=== PATIENT | male | born 1995 | race Asian ===

== ENCOUNTER 2020-08-25 03:06 | Emergency (ER) | payer BC, SELFPAY ==
[~2020-08-25] VITALS: Ht 180.3 cm; Wt 91.6 kg
[2020-08-25 03:34] VITALS: BP_SYST 155
[2020-08-25 04:18] VITALS: BP_SYST 155
== END 2020-08-25 04:18 | disposition home or self-care (01) ==
LOC: SED 03:06
DX: U07.1 COVID-19 (principal); R06.02 Shortness of breath
CPT/HCPCS: 71045; 93005; 99283

== ENCOUNTER 2024-04-12 01:16 | Emergency (ER) | payer BC, OTHER ==
[~2024-04-12] VITALS: Ht 180.3 cm; Wt 93.0 kg
[2024-04-12 01:29] VITALS: BP_SYST 127; PULSE 88; RESP 20; TEMP 98; O2SAT 98
[2024-04-12] MEDS: KETOROLAC TROMETHAMINE 30 MG VIAL IVP ONE (02:18)
[2024-04-12] MEDS: NACL 0.9% 1,000 ML IV ONE (02:18)
[2024-04-12] MEDS: metroNIDAZOLE 500 mg/NS 100 ML IV ONE (02:18)
[2024-04-12 02:27] LABS: BILIRUBIN,URINE NEGATIVE (NEGATIVE); CLARITY/URINE CLEAR (CLEAR); COLOR,URINE YELLOW (YELLOW); GLUCOSE,URINE NEGATIVE (NEGATIVE); KETONES,URINE TRACE (NEGATIVE); LEUKOCYTE ESTERASE ,URINE NEGATIVE (NEGATIVE); NITRITE, URINE NEGATIVE (NEGATIVE); PH,URINE 6.5 (5.0-8.0); PROTEIN URINE NEGATIVE (NEGATIVE)
[2024-04-12 02:29] LABS: BASOPHILS % (AUTO) 0.3 % (0.0-2.0); EOSINOPHILS # (AUTO) 0.1 K/uL (0.0-0.4); EOSINOPHILS % (AUTO) 0.4 % (0.0-4.0); HEMATOCRIT 44.8 % (36-54); HEMOGLOBIN 15.3 g/dL (14.0-18.0); LYMPHOCYTES # (AUTO) 2.7 K/uL (1.0-5.5); LYMPHOCYTES % (AUTO) 21.2 % (20.5-51.5); MEAN CORPUSCULAR HEMOGLOBIN 29 pg (27-31); MEAN CORPUSCULAR HGB CONC 34 % (32-36); MEAN CORPUSCULAR VOLUME 86 fL (79.0-98.0); MONOCYTES # (AUTO) 0.7 K/uL (0.0-1.0); MONOCYTES % (AUTO) 5.5 % (1.7-9.3); NEUTROPHILS # (AUTO) 9.3 K/uL (1.8-7.7); NEUTROPHILS % (AUTO) 72.6 % (40.0-70.0); PLATELET COUNT (AUTO) 210 K/uL (130-430); RED BLOOD CELL COUNT(AUTO) 5.21 MIL/uL (4.2-6.2); RED CELL DISTRIBUTION WIDTH 13.1 % (9.0-15.0); WHITE BLOOD COUNT (AUTO) 12.7 K/uL (4.8-10.8)
[2024-04-12 02:37] LABS: BLOOD, URINE TRACE (NEGATIVE)
[2024-04-12 02:43] LABS: BACTERIA,URINE None Seen /HPF (None Seen); WBC,URINE 0-3 /HPF (0-3)
[2024-04-12 02:44] LABS: ALBUMIN 4.4 g/dL (3.4-4.8); BILIRUBIN,DIRECT 0.2 mg/dL (0.0-0.3); CALCIUM 9.4 mg/dL (8.4-11.0); CREATININE 1.02 mg/dL (0.55-1.30); POTASSIUM 3.2 mmol/L (3.5-5.1); TOTAL BILIRUBIN 0.9 mg/dL (0.0-1.0); TOTAL PROTEIN, SERUM 7.6 g/dL (6.4-8.3)
[2024-04-12] MEDS ORDERED: METR-154 PO (03:50)
[2024-04-12 04:00] VITALS: BP_SYST 126; PULSE 79; RESP 18; TEMP 98.1; O2SAT 100
== END 2024-04-12 04:00 | disposition home or self-care (01) ==
LOC: SED 01:16
DX: K52.89 Other specified noninfective gastroenteritis and colitis (principal); R14.0 Abdominal distension (gaseous); R50.9 Fever, unspecified; Z79.899 Other long term (current) drug therapy
CPT/HCPCS: 99285; 74176; 96365; 96375; 80076; 80048; 81001; 85025; 87040; 36415; J1885; J3490; 81000; 81015